=== PATIENT | female | born 1965 | race Caucasian/White ===

== ENCOUNTER → 2022-01-15 | Outpatient (CLI) | payer BC ==
[~2022-01-15] MED LIST: GADOTERATE 5 MMOL/10ML VIAL. INT ART ONE; IOHEXOL 300 MG/ML 50 ML VIAL. INT ART ONE; LIDOCAINE 1% Multi-Dose 20 ML VIAL. ID ONE
--- NOTE | 2022-01-15 15:25 | KCIC ---
EXAM: Right hip joint injection WITH Fluoroscopic guidance DATE: 01/15/2022 1:00 PM CLINICAL HISTORY: Reason: Rt hip pain, evaluate for tear. Chronic Rt hip pain, hurts to bear wt., no known injury. COMPARISON: None pertinent TECHNIQUE: The patient was informed of the indications and alternatives for this procedure as well as risks and benefits. No immediate contraindication identified. The patient provided informed, written consent. Laterality was confirmed by the entire team following a time out. Following initial Right hip joint localization, a suitable area was sterilely prepped and draped. Loc al anesthesia was administered with 1% xylocaine. With intermittent fluoroscopic observation, a 22-ga uge spinal needle was advanced into the Right hip joint sheath/capsule with confirmation of intra-syn ovial position given spontaneous aspiration of joint fluid and with infusion of less than 1 cc iodina mariluz contrast. Subsequent infusion 10 cc's solution containing 10 cc saline, 5 cc lidocaine 1%, 5 cc I sovue and 0.1 cc gadolinium. Additional contrast cannot be injected given patient discomfort given pr e-existing joint effusion. Hemostasis with local pressure. Local clinical exam negative for immediate complication. Patient informed re local potential signs or symptoms that may indicate need to return to ER/Ordering physician for further evaluation. Patient informed re precautionary measures after intra-synovial in jection of anesthetic.Patient expressed understanding. Performing Physicians: Dr. Julito Cortés Blood Loss: 0 cc Pre-procedural Pain Scale: 2 Post-procedural Pain Scale: 2 Total Fluoroscopy time: 6 seconds Total images saved: 2 IMPRESSION: Successful intra-synovial injection Right hip joint with gadolinium contrast per clinical request. Electronically signed by: Palmer Cortés MD (01/15/2022 3:22 PM) [id number]
--- NOTE | 2022-01-15 15:36 | KCIC ---
EXAM: MR arthrogram right hip DATE: 01/15/2022 3:24 PM INDICATION: Right hip pain, evaluate for tear. Chronic Rt hip pain, hurts to bear wt., no known injur y. COMPARISON: None available. TECHNIQUE: Multiplanar, multisequence MR imaging of the right hip was performed following the adminis tration of intra-articular gadolinium contrast.. Please see separate procedure report for full inject ion details. FINDINGS: Iatrogenic distention of the right hip joint with gadolinium contrast. There is full-thickness cartil age defect at the superior humeral head and acetabulum with subchondral edema. No associated fracture or osteonecrosis. Small osteophytes at the acetabular margin and femoral head/neck junction. Anterio r-inferior labral tear/degeneration. Morphology: Normal proximal femoral angle, 132 degrees. Normal acetabular anteversion. Normal alpha angle, 42 degrees. No acute fracture or osteonecrosis. Grossly normal without mass lesion or free intraperitoneal fluid. Negative large pelvic wall adenopathy. Tendinous attachments of the iliopsoas, gluteus medius, gluteus minimus are intact. Increased signal with small fluid cleft at the hamstring tendon attachment, tendinosis with shallow partial thickness tear. Visceral pelvis: Incomplete survey of marginal visceral structures of the pelvis. IMPRESSION: 1. Right hip joint osteoarthritis with regions of chondral effacement and subchondral edema. Associa mariluz anterior superior labral tear/degeneration. 2. No acute fracture or osteonecrosis. 3. Mild tendinosis of the right hamstring tendons with shallow partial-thickness tear/delamination a t the attachments Electronically signed by: Palmer Cortés MD (01/15/2022 3:34 PM) [id number]
== END | disposition home or self-care (01) ==
LOC: KCIC 12:39
PROVIDERS: ATTEND Orthopaedic Surgery
DX: G89.29 Other chronic pain (principal); M25.551 Pain in right hip; Z79.899 Other long term (current) drug therapy
CPT/HCPCS: 27093; 73719; 77002; A9575; J3490; Q9967

== ENCOUNTER → 2022-02-12 | Outpatient (CLI) | payer BC ==
[~2022-02-12] MED LIST changes: +BUPIVACAINE MPF 0.5% 10 ML VIAL. INT ART ONE; -GADOTERATE 5 MMOL/10ML VIAL. INT ART ONE; -IOHEXOL 300 MG/ML 50 ML VIAL. INT ART ONE; +TRIAMCINOLONE PRES.FREE 40 MG/ML VIAL. INT ART ONE
--- NOTE | 2022-02-13 07:47 | KCIC ---
EXAM: Right hip joint injection WITH Fluoroscopic guidance DATE: 02/12/2022 12:36 PM CLINICAL HISTORY: Reason: CHRONIC RT HIP PAIN / Spl. Instructions: FT :13, 1 IMG, 1ML LIDOCAINE, 1ML KENALOG, 2ML BUPIVACAINE / History: COMPARISON: None pertinent TECHNIQUE: The patient was informed of the indications and alternatives for this procedure as well as risks and benefits. No immediate contraindication identified. The patient provided informed, written consent. Laterality was confirmed by the entire team following a time out. Following initial Right hip joint localization, a suitable area was sterilely prepped and draped. Loc al anesthesia was administered with 1% xylocaine. With intermittent fluoroscopic observation, a 22-ga uge spinal needle was advanced into the Right hip joint sheath/capsule with confirmation of intra-syn ovial position with infusion of less than 3 cc room air. Subsequent infusion 1 mL Kenalog 40 mg/mL, 2 mL bupivacaine 0.5 percent. Hemostasis with local pressure. Local clinical exam negative for immedia te complication. Patient informed re local potential signs or symptoms that may indicate need to return to ER/Ordering physician for further evaluation. Patient informed re precautionary measures after intra-synovial in jection of anesthetic. Patient informed re potential for short term increase local symptomatology due to steroid flare. Patient expressed understanding. Performing Physicians: Dr. Julito Cortés Blood Loss: 0 cc Pre-procedural Pain Scale: 6 Post-procedural Pain Scale: 2 Total Fluoroscopy time: 13 seconds Total images taken: 1 IMPRESSION: Successful intra-synovial injection Right hip joint with steroid and anesthetic per clinical request. Electronically signed by: Palmer Cortés MD (02/12/2022 1:54 PM) [id number]
== END | disposition home or self-care (01) ==
LOC: KCIC 12:31
PROVIDERS: ATTEND Orthopaedic Surgery Sports Medicine
DX: M25.551 Pain in right hip (principal); G89.29 Other chronic pain; Z79.899 Other long term (current) drug therapy
CPT/HCPCS: 20610; 77002; J3301; J3490